=== PATIENT | female | born 1990 | race Two or more races ===

== ENCOUNTER 2025-01-15 19:15 | Emergency (ER) | payer OTHER ==
[~2025-01-15] VITALS: Ht 170.2 cm; Wt 59.0 kg
[2025-01-15 20:00] VITALS: BP 119/70; TEMP 98.5
[2025-01-15] MEDS ORDERED: FAMOTIDINE (20 MG) 20 MG TABLET ONE (20:16)
[2025-01-15] MEDS ORDERED: diphenhydrAMINE HCL 25 MG CAPSULE ONE (20:16)
[2025-01-15] MEDS ORDERED: DIPH25CA83 PO (20:17)
[2025-01-15] MEDS ORDERED: HYDR28.32 TP (20:17)
[2025-01-15] MEDS: FAMOTIDINE (20 MG) 20 MG TABLET PO ONE (20:18)
[2025-01-15] MEDS: DIPHENHYDRAMINE HCL 12.5 MG/5 ML UDC PO ONE (20:18)
[2025-01-15 20:48] VITALS: O2SAT 98
== END 2025-01-15 20:48 | disposition home or self-care (01) ==
LOC: ER 19:17
DX: T78.1XXA Other adverse food reactions, not elsewhere classified, initial encounter (principal); F17.200 Nicotine dependence, unspecified, uncomplicated; Z60.2 Problems related to living alone; Y92.89 Other specified places as the place of occurrence of the external cause; T78.49XA Other allergy, initial encounter
CPT/HCPCS: 99283; Q0163 ×2